=== PATIENT | female | born 1995 | race Caucasian/White ===

== ENCOUNTER 2018-02-16 09:09 | Outpatient (CLI) | payer OTHER | END 2018-02-16 09:10 | disposition home or self-care (01) | LOC: BICULT 09:09 | PROVIDERS: ATTEND Internal Medicine | DX: B19.20 Unspecified viral hepatitis C without hepatic coma (principal) | CPT/HCPCS: 76700 ==

== ENCOUNTER 2020-02-01 08:24 | Outpatient (CLI) | payer BC ==
--- NOTE | 2020-02-01 09:33 | ULT ---
ULTRASOUND OBSTETRICAL LIMITED: DATE: 02/01/2020 HISTORY: 25-year-old female in third trimester of . "O 44.03, placenta previa antepartum in third trimester" "Transvaginal OB ultrasound for placental location" FINDINGS: number: hewitt lie: Cephalic Maternal cervix: 4.2 cm. Closed. Placenta: Posterior. The head obscures the anterior margin of the posterior placenta. It defini tely does not cover the internal cervical os. At least 0.8 cm around the internal os is clear of placenta. Amniotic fluid volume: HAMMAD = 13cm heart rate: 124 bpm anatomy not evaluated in detail. biometry: Biparietal diameter (BPD): 7.4 cm 29 w 6 d Head circumference (HC): 28.9 cm 31 w 6 d Abdominal circumference (AC): 28.9 cm 33 w 0 d Femur length (FL): 6.2 cm 32 w 0 d Average ultrasound age (AUA): 31 w 5 d Estimated date of delivery (BROCK): 03/30/2020 Estimated weight (EFW): 1931 g +/- 282 g IMPRESSION: 1) Live 3rd trimester intrauterine gestation. 2) Estimated gestational age of 31 weeks, 5 days 3) Vertex lie. 4) posterior placenta. There is definitely no central placenta previa. Anterior margin of placenta is obscured by head.
== END 2020-02-01 08:25 | disposition home or self-care (01) ==
LOC: BICULT 08:24
PROVIDERS: ATTEND Family Medicine
DX: O44.03 Complete placenta previa NOS or without hemorrhage, third trimester (principal); Z3A.31 31 weeks gestation of pregnancy
CPT/HCPCS: 76815

== ENCOUNTER 2020-02-25 10:34 | Outpatient (CLI) | payer BC, OTHER ==
[2020-02-26 12:18] LABS: SARS-CoV-2 MS2 Positive; SARS-CoV-2 N Gene Negative; SARS-CoV-2 S Gene Negative; SARS-CoV-2 orf1ab Negative
== END 2020-02-25 10:35 | disposition home or self-care (01) ==
LOC: EDBD → LABSCS 10:34
PROVIDERS: ATTEND Family Medicine
DX: Z01.812 Encounter for preprocedural laboratory examination (principal); Z11.59 Encounter for screening for other viral diseases
CPT/HCPCS: 87635; U0003

== ENCOUNTER 2020-02-28 09:54 | Inpatient (IN) | payer BC, OTHER ==
[2020-02-28 10:42] VITALS: BMI 28.0
[2020-02-28] MEDS ORDERED: Bicitra 30 ML UDCUP ONE (10:58)
[2020-02-28] MEDS ORDERED: Butorphanol Tartrate 1 MG/ML VIAL SLOW IVP PRN (11:00)
[2020-02-28] MEDS ORDERED: hydrALAZINE 20 MG/ML VIAL SLOW IVP PRN ×2 (11:00→16:06)
[2020-02-28] MEDS ORDERED: Promethazine HCl 25 MG/ML VIAL IM PRN ×3 (11:00→16:06)
[2020-02-28] MEDS ORDERED: Famotidine/PF 20 mg/2ml Vial SLOW IVP SCH (11:00)
[2020-02-28] MEDS ORDERED: Ondansetron PF 4 MG/2 ML Vial IVP PRN ×3 (11:00→16:06)
[2020-02-28] MEDS ORDERED: Lactated Ringer's 1,000 ML IV SCH (11:00)
[2020-02-28] MEDS ORDERED: CEFAZOLIN 2 GM in Premix Bag 1 BAG IVPB SCH (11:15)
[2020-02-28 11:22] LABS: Mean Corpuscular Hemoglobin 27.8 pg (27.0-31.0); Mean Corpuscular Volume 84.2 fL (78.0-98.0); Mean Platelet Volume 9.1 fL (7.4-10.4); Platelet Count 208 thou/uL (130-400); RBC Distribution Width 14.4 % (11.5-14.5); Red Blood Cell (RBC) Count 3.97 mill/uL (4.20-5.40); White Blood Cell (WBC) Count 7.6 thou/uL (4.8-10.8)
[2020-02-28] MEDS ORDERED: MORPHINE 5 MG/10 ML PF VIAL ONE (11:58)
[2020-02-28] MEDS ORDERED: EPHEDRINE 25 MG/5 ML SYRINGE ONE (11:59)
[2020-02-28] MEDS ORDERED: Ketorolac Tromethamine 30 MG/ML VIAL ONE (11:59)
[2020-02-28] MEDS ORDERED: PHENYLEPHRINE-NS 100 MCG/ML 10 ML SYRINGE ONE (11:59)
[2020-02-28] MEDS ORDERED: Oxytocin 10 UNITS/ML VIAL ONE ×2 (11:59→13:43)
[2020-02-28 12:14] LABS: HBSAg Index 0.13 S/CO (0-0.99); Hep B Surf Ag Non-Reactive S/CO (NonReactive); Syphilis Antibody Nonreactive (Nonreactive); Syphilis Antibody Index 0.05 S/CO (<1.00 Non-Reactive)
[2020-02-28] MEDS ORDERED: Naloxone HCl 0.4 mg/ml Vial IV PRN (12:19)
[2020-02-28] MEDS ORDERED: Promethazine HCl 25 MG SUPP PR PRN (12:19)
[2020-02-28] MEDS ORDERED: diphenhydrAMINE 50 MG/ML VIAL IVP PRN (12:19)
[2020-02-28] MEDS ORDERED: Ketorolac Tromethamine 30 MG/ML VIAL IVP PRN (12:19)
[2020-02-28] MEDS ORDERED: Naloxone HCl 0.4 mg/ml Vial IVP PRN ×2 (12:19)
[2020-02-28] MEDS ORDERED: L&D-Morphine 4 MG/ML VIAL SLOW IVP PRN (12:19)
[2020-02-28] MEDS ORDERED: Ondansetron HCl/PF 4 MG/2 ML Vial IVP PRN (12:19)
[2020-02-28] MEDS ORDERED: Meperidine HCl/PF 25 MG/ML VIAL SLOW IVP PRN (12:19)
[2020-02-28] MEDS ORDERED: HYDROmorphone 2 MG/ML VIAL SLOW IVP PRN (12:19)
[2020-02-28] MEDS ORDERED: Communication Order-Pharmacy FS SCH (12:30)
[2020-02-28] MEDS ORDERED: Ketorolac Tromethamine 30 MG/ML VIAL IVP SCH (12:30)
[2020-02-28] MEDS ORDERED: Tranexamic Acid 1,000 MG/10 ML VIAL ONE (13:04)
[2020-02-28] MEDS ORDERED: Ondansetron PF 4 MG/2 ML Vial ONE (13:14)
--- NOTE | 2020-02-28 13:52 | PDOC.OPDEL ---
OB Operative/Delivery Note - Additional Findings/Plan Compilations/Other Findings: Date of Procedure: 02/28/2020 Primary Surgeon: Dr. Everardo Courtney Studio Producer Surgeon: Dr. Tremayne Childers Procedure: Repeat low transverse caesarean section Preoperative Diagnosis: 1) 36w4d intrauterine 2) Previous x 1 3) Low-lying posterior placenta Postoperative Diagnosis: 1-3) same as above Anesthesia: spinal Indications: The patient is a 25 year old G4,P3 female at 36.3 weeks gestation who presents for a repeat scheduled . Procedure in Detail: After risks, benefits, and alternatives were explained to the patient, she gave informed consent. Pre-operative antibiotics included Cefazolin 2 gram IV. The patient was taken to the operating room and spinal anesthesia was initiated. She was placed in the supine position with a left tilt and prepped and draped in usual sterile fashion. A Pfannenstiel incision was made with a scalpel and carried down to the level of the fascia which was sharply nicked. The fascial cut was extended bilaterally with Augustin sissors. The inferior and superior edges of the cut fascial edges were elevated with Sharon clamps and the underlying rectus muscles were sharply and bluntly dissected free. The recti were divided digitally and retracted manually. The peritoneum was entered bluntly and retracted manually. Bladder blade was placed. A low transverse score was made with the scalpel and the uterus was entered in the midline with the scalpel. Clear fluid was seen. The hysterotomy was extended manually. The infant was noted to be vertex and was easily delivered by fundal pressure. Cord clamped and cut and grossly normal female infant was handed to waiting nurse. Cord blood was obtained. Placenta was manually extracted, found to be intact with 3 vessel cord and discarded. The uterus was externalized and the endometrium was curetted with a dry lap. TXA was given for slightly heavier- than-normal bleeding from the BIRDIE, which resolved by the time of uterine closure. The bladder blade was replaced and the uterus was closed with a running locking #1 monocryl suture followed by a running horizontal mattress imbricating layer for mild incisional oozing. Following this hemostasis was noted. A layer of seprafilm was placed along the incision and anterior aspect of the uterus. The abdomen was irrigated with saline and suctioned free of clots. The uterus was internalized and the hysterotomy was again noted to be hemostatic. The fascia was closed with a running non-locking 0-PDS suture. The peritoneum was closed with a loose running 3-0 vircyl. The subcutaneous tissue was irrigated and approximated using interrupted 2-0 plain sutures. The skin was approximated with gagandeep and a pressure dressing was placed. All counts were correct. The patient tolerated the procedure well and was taken to the recovery room in stable condition. Quantified Blood Loss: 880 ml Complications: None Specimens: Cord blood sent to lab for blood type Findings: Grossly normal female infant with Apgars of 9 and 10. Grossly normal placenta with 3 vessel cord discarded. Drains: Ramos to gravity draining clear urine
[2020-02-28] MEDS ORDERED: diphenhydrAMINE 25 MG CAP PO PRN (16:06)
[2020-02-28] MEDS ORDERED: NS / Oxytocin 40 units/1000ml 1,000 ML IV SCH (16:06)
[2020-02-28] MEDS ORDERED: Lanolin Ointment 7 GM TUBE TOP PRN (16:06)
[2020-02-28] MEDS ORDERED: Adacel (T-DAP) 0.5 ML SYRINGE IM ONE (16:06)
[2020-02-28] MEDS: Ketorolac Tromethamine 30 MG/ML VIAL IVP SCH (20:19)
[2020-02-28] MEDS: Simethicone Chewable 80 MG TAB PO PRN (20:19)
[2020-02-28] MEDS: Docusate Calcium (SURFAK) 240 MG CAP PO SCH (20:19)
[2020-02-28] MEDS: Ferrous Sulfate 325 MG TAB PO SCH (23:31)
[2020-02-29] MEDS ORDERED: Meperidine HCl/PF 25 MG/ML VIAL IM PRN (00:30)
[2020-02-29] MEDS ORDERED: HYDROcodone/Acetaminophen 5/325 mg Tablet PO PRN (00:30)
[2020-02-29] MEDS: HYDROcodone/Acetaminophen 5/325 mg Tablet PO PRN ×4 (01:19→18:24)
[2020-02-29] MEDS: Ketorolac Tromethamine 30 MG/ML VIAL IVP SCH ×3 (02:21→08:29)
[2020-02-29 06:00] LABS: Hemoglobin 10.6 g/dL (12.0-16.0); Mean Corpuscular HGB CONC 31.5 g/dL (32.0-36.0); Mean Corpuscular Hemoglobin 26.5 pg (27.0-31.0); Mean Corpuscular Volume 84.3 fL (78.0-98.0); Mean Platelet Volume 9.3 fL (7.4-10.4); Platelet Count 193 thou/uL (130-400); RBC Distribution Width 14.3 % (11.5-14.5); Red Blood Cell (RBC) Count 3.99 mill/uL (4.20-5.40); White Blood Cell (WBC) Count 8.7 thou/uL (4.8-10.8)
[2020-02-29] MEDS: Simethicone Chewable 80 MG TAB PO PRN ×2 (07:02→18:26)
[2020-02-29] MEDS: Prenatal Vitamin 1 TAB PO SCH (08:27)
[2020-02-29] MEDS: Docusate Calcium (SURFAK) 240 MG CAP PO SCH ×2 (08:36→23:02)
[2020-02-29] MEDS: Ferrous Sulfate 325 MG TAB PO SCH ×2 (10:49→22:08)
[2020-02-29] MEDS: Ibuprofen 800 MG TAB PO SCH ×2 (13:31→23:02)
[2020-02-29] MEDS ORDERED: Witch Hazel-Glycerin 1 EACH JAR TOP PRN (22:37)
[2020-02-29] MEDS ORDERED: Preparation H Ointment 57 gram tube RC PRN (22:39)
[2020-03-01] MEDS: Ibuprofen 800 MG TAB PO SCH ×2 (06:02→13:29)
[2020-03-01] MEDS: Ferrous Sulfate 325 MG TAB PO SCH (08:10)
[2020-03-01] MEDS: Prenatal Vitamin 1 TAB PO SCH (08:10)
[2020-03-01] MEDS: Docusate Calcium (SURFAK) 240 MG CAP PO SCH (08:10)
[2020-03-01 11:42] VITALS: BP 132/80; TEMP 97.8
[2020-03-01] MEDS: HYDROcodone/Acetaminophen 5/325 mg Tablet PO PRN (13:28)
[2020-03-01] MEDS: Simethicone Chewable 80 MG TAB PO PRN (13:28)
== END 2020-03-01 17:20 | disposition home or self-care (01) | DRG 787 ==
LOC: EDBD 09:54 → L&D 09:54 → 3SW 16:42
PROVIDERS: ADMIT Family Medicine; ATTEND Family Medicine
PROC: 10D00Z1 Extraction of Products of Conception, Low, Open Approach (ICD-10-PCS; principal; 2020-02-28)
DX: O34.211 Maternal care for low transverse scar from previous cesarean delivery (principal); O98.42 Viral hepatitis complicating childbirth; Z3A.36 36 weeks gestation of pregnancy; Z37.0 Single live birth; B18.2 Chronic viral hepatitis C
CPT/HCPCS: 36415; 51702; 85027; 86780; 86850; 86900; 86901; 87340; 87635; J0690; J1885; J2274; J2405; J2590; Q0163; U0003